=== PATIENT | female | born 1980 | race Caucasian/White ===

== ENCOUNTER 2020-09-07 12:04 | Emergency (ER) | payer OTHER ==
[~2020-09-07] VITALS: Ht 157.5 cm; Wt 66.7 kg
[2020-09-07] MEDS ORDERED: CYCL10 PO (13:38)
[2020-09-07] MEDS ORDERED: OXYC5 PO (13:38)
== END 2020-09-07 13:54 | disposition home or self-care (01) ==
LOC: ER 12:04
DX: S16.1XXA Strain of muscle, fascia and tendon at neck level, initial encounter (principal); S09.90XA Unspecified injury of head, initial encounter; V49.40XA Driver injured in collision with unspecified motor vehicles in traffic accident, initial encounter; Y92.410 Unspecified street and highway as the place of occurrence of the external cause
CPT/HCPCS: 70450; 72125; 99284-25; A9270

== ENCOUNTER 2020-09-18 17:48 | Emergency (ER) | payer OTHER ==
[~2020-09-18] VITALS: Ht 157.5 cm; Wt 65.8 kg
[~2020-09-18 17:48] MED LIST: CYCL10 PO; OXYC5 PO
[2020-09-18] MEDS ORDERED: Imitrex25 MG PO (20:29)
== END 2020-09-18 20:35 | disposition home or self-care (01) ==
LOC: ER 17:48
DX: R51.9 Headache, unspecified (principal); T39.91XA Poisoning by unspecified nonopioid analgesic, antipyretic and antirheumatic, accidental (unintentional), initial encounter
CPT/HCPCS: 36415; 96365; 96375; 99283-25; J1200; J1885; J2765; J3475; J7030

== ENCOUNTER 2021-07-14 20:06 | Emergency (ER) | payer OTHER ==
[~2021-07-14] VITALS: Ht 160 cm; Wt 63.5 kg
[~2021-07-14 20:06] MED LIST changes: +Imitrex25 MG PO
[2021-07-14] MEDS ORDERED: CYCL10 PO (22:12)
== END 2021-07-14 22:23 | disposition home or self-care (01) ==
LOC: ER 20:06
DX: S06.0X0A Concussion without loss of consciousness, initial encounter (principal); S16.1XXA Strain of muscle, fascia and tendon at neck level, initial encounter; V89.2XXA Person injured in unspecified motor-vehicle accident, traffic, initial encounter
CPT/HCPCS: 70450; 72125; 99284-25; A9270; J1885; L0160